=== PATIENT | female | born 1945 | race Caucasian/White ===

== ENCOUNTER → 2017-02-26 | Outpatient (CLI) | payer MEDICARE, BC ==
[2017-02-26 08:26] LABS: CHCM 32.3; HCT 42.2 % (34.0-46.0); HDW 2.67; HGB 13.9 gm/dL (11.4-16.0); MCH 30.9 pg (25.0-35.0); MCHC 33.1 g/dL (31.0-37.0); MCV 93.4 fL (80.0-100.0); Mean Platelet Volume 7.5; RBC 4.52 m/uL (3.80-5.40); RDW 12.7 % (11.5-15.5); WBC 5.5 k/uL (3.8-10.6)
[2017-02-26 12:04] LABS: ALT 40 U/L (9-52); AST 41 U/L (14-36); Alkaline Phosphatase 70 U/L (38-126); Anion Gap 12 mmol/L; Blood Urea Nitrogen 21 mg/dL (7-17); Calcium 10.3 mg/dL (8.4-10.2); Carbon Dioxide 27 mmol/L (22-30); Chloride 106 mmol/L (98-107); Glucose 106 mg/dL (74-99); Non-African American GFR(MDRD) >60 (>60 ml/min/1.73 sqM); Potassium 4.7 mmol/L (3.5-5.1); Sodium 145 mmol/L (137-145); Total Bilirubin 0.5 mg/dL (0.2-1.3); Total Protein 6.9 g/dL (6.3-8.2)
[2017-02-26 12:50] LABS: Vitamin B12 551 pg/mL
== END | disposition home or self-care (01) ==
LOC: LABWHC1 08:06
PROVIDERS: ATTEND Internal Medicine Endocrinology, Diabetes & Metabolism
DX: R53.83 Other fatigue (principal)
CPT/HCPCS: 36415; 80053; 82533; 82607; 84146; 84439; 84443; 84480; 85027; 86376

== ENCOUNTER → 2017-04-10 | Outpatient (CLI) | payer MEDICARE, BC ==
[2017-04-10 08:43] LABS: ALT 37 U/L (9-52); AST 24 U/L (14-36); Alkaline Phosphatase 69 U/L (38-126); Anion Gap 11 mmol/L; Blood Urea Nitrogen 25 mg/dL (7-17); Calcium 10.3 mg/dL (8.4-10.2); Carbon Dioxide 27 mmol/L (22-30); Chloride 105 mmol/L (98-107); Glucose 95 mg/dL (74-99); Non-African American GFR(MDRD) >60 (>60 ml/min/1.73 sqM); Potassium 4.6 mmol/L (3.5-5.1); Sodium 143 mmol/L (137-145); Total Bilirubin 0.4 mg/dL (0.2-1.3); Total Protein 7.2 g/dL (6.3-8.2)
== END | disposition home or self-care (01) ==
LOC: LABWHC1 08:05
PROVIDERS: ATTEND Internal Medicine Endocrinology, Diabetes & Metabolism
DX: E03.9 Hypothyroidism, unspecified (principal)
CPT/HCPCS: 36415; 80053; 82024; 82533; 84443

== ENCOUNTER → 2017-09-10 | Outpatient (CLI) | payer MEDICARE, BC ==
[2017-09-10 13:16] LABS: Blood Urea Nitrogen 23 mg/dL (7-17)
--- NOTE | 2017-09-10 16:44 | CT ---
EXAMINATION TYPE: CT urogram wo/w con DATE OF EXAM: 09/10/2017 HISTORY: Recurrent UTI CT DLP: 3184mGycm Automated Exposure Control for Dose Reduction was Utilized. CONTRAST: CT scan of the abdomen and pelvis is performed without and with IV Contrast, patient injected with 10 0 ml mL of Omnipaque 300. COMPARISON: None. FINDINGS: LUNG BASES: No significant abnormality is appreciated. LIVER/GB: Liver shows low attenuation possibly due to hepatic steatosis. Patient is post cholecystect isai. PANCREAS: No significant abnormality is seen. SPLEEN: Borderline enlarged. ADRENALS: No significant abnormality is seen. KIDNEYS: There is a low dense focus present in the renal pelvis measuring approximately 9 x 1 x 8 mm. This does not show contrast accumulation however on immediate postcontrast images there is suggestio n of a extension from this level, partial duplicated renal collecting system although no contrast acc umulates at this level in delayed images. BOWEL: No significant abnormality is seen. UTERUS/ADNEXA: Absent uterus, ovaries not identified with certainty LYMPH NODES: No greater than 1cm abdominal or pelvic lymph nodes are appreciated. OSSEOUS STRUCTURES: No significant abnormality is seen. OTHER: No significant additional abnormality is seen. 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 Postop changes and additional fin dings above.
== END | disposition home or self-care (01) ==
LOC: RADCTMAIN 12:15
PROVIDERS: ATTEND Surgery
DX: N39.0 Urinary tract infection, site not specified (principal); R52 Pain, unspecified; Z90.710 Acquired absence of both cervix and uterus; Z98.890 Other specified postprocedural states
CPT/HCPCS: 82565; 84520; 74178; 36415; 74400; Q9967

== ENCOUNTER → 2017-09-11 | Outpatient (CLI) | payer MEDICARE, BC | END | disposition home or self-care (01) | LOC: LABWHC1 09:46 | PROVIDERS: ATTEND Internal Medicine Endocrinology, Diabetes & Metabolism | DX: E03.8 Other specified hypothyroidism (principal); E83.52 Hypercalcemia | CPT/HCPCS: 36415; 83970; 84443 ==

== ENCOUNTER → 2018-01-16 | Outpatient (CLI) | payer MEDICARE, BC ==
[2018-01-16 10:40] LABS: Albumin 4.5 g/dL (3.5-5.0); Potassium 4.4 mmol/L (3.5-5.1); Total Bilirubin 0.5 mg/dL (0.2-1.3); Total Protein 6.7 g/dL (6.3-8.2)
[2018-01-16 15:52] LABS: Parathyroid Hormone Intact 16.6 pg/mL (14.0-72.0)
[2018-01-16 16:01] LABS: Vitamin D 25 Hydroxy 49.9 ng/mL (30.0-100.0)
== END | disposition home or self-care (01) ==
LOC: LABWHC1 09:08
PROVIDERS: ATTEND Internal Medicine Endocrinology, Diabetes & Metabolism
DX: E03.8 Other specified hypothyroidism (principal); E83.52 Hypercalcemia
CPT/HCPCS: 36415; 80053; 82306; 83970; 84443

== ENCOUNTER → 2018-07-16 | Outpatient (CLI) | payer MEDICARE, BC ==
--- NOTE | 2018-07-16 08:44 | US ---
EXAMINATION TYPE: US thyroid st tissue head/neck DATE OF EXAM: 07/16/2018 COMPARISON: NONE CLINICAL HISTORY: E03.9 Hypothyroidism, unspecified. GLAND SIZE: Right Lobe: 0.9 x 2.6 x 0.9 cm Overall Parenchyma: homogenous Left Lobe: 3.5 x 0.9 x 2.2 cm Overall Parenchyma: homogeneous Isthmus Thickness: 0.4 cm NODULES RIGHT: # of nodules measured on right: 0 LEFT: # of nodules measured on left: 1 1. 0.4 X 0.2 x 0.4 cm mixed nodule at the mid/lower pole with well-defined margins; . This nodule is wider than tall and shows no intranodular vascularity. Prior size: no prior 2. 0.4 X 0.2 x 0.4 cm solid nodule at the mid pole with well-defined margins; . This nodule is wide r than tall and shows no intranodular vascularity. Prior size: no prior ISTHMUS: # of nodules measured in the isthmus: 0 Bilateral neck scanned, no evidence of lymphadenopathy. IMPRESSION: Subcentimeter left thyroid nodules that do not meet size criteria for fine-needle aspiration. Surveil brandon could be performed with thyroid ultrasound in 12 months. Overall there is glandular atrophy.
[2018-07-16 09:32] LABS: Albumin 4.4 g/dL (3.5-5.0); Calcium 10.1 mg/dL (8.4-10.2); Potassium 4.4 mmol/L (3.5-5.1); Total Bilirubin 0.6 mg/dL (0.2-1.3); Total Protein 6.8 g/dL (6.3-8.2)
[2018-07-16 16:15] LABS: Parathyroid Hormone Intact 21.8 pg/mL (14.0-72.0)
[2018-07-16 17:17] LABS: Vitamin D 25 Hydroxy 49.7 ng/mL (30.0-100.0)
== END ==
LOC: RADUSWWP 08:08
PROVIDERS: ATTEND Internal Medicine Endocrinology, Diabetes & Metabolism
DX: E04.2 Nontoxic multinodular goiter (principal); R53.83 Other fatigue; E83.52 Hypercalcemia
CPT/HCPCS: 36415; 76536; 80053; 82306; 83970; 84443

== ENCOUNTER → 2018-09-10 | Outpatient (CLI) | payer MEDICARE, BC ==
--- NOTE | 2018-09-10 12:10 | CT ---
EXAMINATION TYPE: CT urogram wo/w con DATE OF EXAM: 09/10/2018 HISTORY: Hydronephrosis-left kidney (per Patient) CT DLP: 1906mGycm Automated Exposure Control for Dose Reduction was Utilized. CONTRAST: CT scan of the abdomen and pelvis is performed with IV Contrast, patient injected with 80 mL of Isovu e 300. COMPARISON: CT urogram 09/10/2017 FINDINGS: Lack of intravenous contrast may compromise sensitivity. LUNG BASES: No significant abnormality is appreciated. LIVER/GB: Patient is post cholecystectomy. Liver shows low attenuation possibly due to hepatic steato sis PANCREAS: No significant abnormality is seen. SPLEEN: No significant abnormality is seen. ADRENALS: No significant abnormality is seen. KIDNEYS: No significant abnormality is seen. BOWEL: No significant abnormality is seen. UTERUS/ADNEXA: Absent LYMPH NODES: No greater than 1cm abdominal or pelvic lymph nodes are appreciate d. OSSEOUS STRUCTURES: No significant interval change is seen. OTHER: No significant additional abnormality is seen. IMPRESSION: No significant finding.
== END | disposition home or self-care (01) ==
LOC: RADCTMAIN 07:51
PROVIDERS: ATTEND Urology
DX: N13.39 Other hydronephrosis (principal); N39.0 Urinary tract infection, site not specified
CPT/HCPCS: 82565; 84520; 74178; 36415; 74400; Q9967

== ENCOUNTER → 2019-02-01 | Outpatient (CLI) | payer MEDICARE, BC ==
[2019-02-01 17:56] LABS: Vitamin D 25 Hydroxy 44.6 ng/mL (30.0-100.0)
[2019-02-01 17:59] LABS: Albumin 4.6 g/dL (3.80-4.90); Albumin/Globulin Ratio 2.71 (1.60-3.17); Anion Gap 13.4 mmol/L (4.00-12.00); BUN/Creat Ratio 27.78 Ratio (12.00-20.00); Calcium 9.9 mg/dL (8.7-10.3); Carbon Dioxide 25.6 mmol/L (21.6-31.8); Globulin 1.7 g/dL (1.6-3.3); Potassium 4.5 mmol/L (3.5-5.5); Total Bilirubin 0.4 mg/dL (0.2-1.2); Total Protein 6.3 g/dL (6.2-8.2)
[2019-02-01 18:57] LABS: Parathyroid Hormone Intact 11.9 pg/mL (14.0-72.0)
== END | disposition home or self-care (01) ==
LOC: LABWHC1 10:08
PROVIDERS: ATTEND Internal Medicine Endocrinology, Diabetes & Metabolism
DX: E03.8 Other specified hypothyroidism (principal); E83.52 Hypercalcemia
CPT/HCPCS: 36415; 80053; 82306; 83970; 84443

== ENCOUNTER → 2019-08-10 | Outpatient (CLI) | payer MEDICARE, BC ==
[2019-08-10 18:06] LABS: African American GFR (CKD) 84.8 (60.0-200.0); Albumin 4.8 g/dL (3.80-4.90); BUN/Creat Ratio 31.25 Ratio (12.00-20.00); Calcium 9.4 mg/dL (8.7-10.3); Globulin 1.6 g/dL (1.6-3.3); Non-African American GFR(CKD) 73.1 (60.0-200.0); Potassium 4.2 mmol/L (3.5-5.5); Total Bilirubin 0.4 mg/dL (0.3-1.2); Total Protein 6.4 g/dL (6.2-8.2)
== END | disposition home or self-care (01) ==
LOC: LABWHC1 10:25
PROVIDERS: ATTEND Internal Medicine Endocrinology, Diabetes & Metabolism
DX: E83.52 Hypercalcemia (principal); E03.8 Other specified hypothyroidism
CPT/HCPCS: 36415; 80053; 82306; 83970; 84443

== ENCOUNTER → 2020-02-02 | Outpatient (CLI) | payer MEDICARE, BC ==
--- NOTE | 2020-02-02 07:58 | US ---
EXAMINATION TYPE: US thyroid st tissue head/neck DATE OF EXAM: 02/02/2020 COMPARISON: US July 16, 2018. CLINICAL HISTORY: E21.0 PRIMARY HYPERPARATHYROIDISM. Abnormal thyroid labs GLAND SIZE: Right Lobe: 2.9 x 0.8 x 0.8 cm Overall Parenchyma: homogenous Left Lobe: 3.3 x 1.0 x 0.8 cm Overall Parenchyma: homogeneous Isthmus Thickness: 0.3 cm NODULES RIGHT: # of nodules measured on right: 1 1. 0.3 X 0.2 x 0.4 cm hypoechoic mixed nodule at the upper pole with well-defined margins; This nod ule is wider than tall and shows intranodular vascularity. Prior size: No prior LEFT: # of nodules measured on left: 2 1. 0.6 X 0.3 x 0.5 cm hypoechoic solid nodule at the mid pole with well-defined margins; This nodul e is wider than tall and shows intranodular vascularity. Prior size: 0.4 x 0.2 x 0.4 cm 2. 0.4 X 0.2 x 0.4 cm hypoechoic mixed nodule at the lower pole with well-defined margins; This nod ule is wider than tall and shows intranodular vascularity. Prior size: 0.4 x 0.2 x 0.4 cm Bilateral neck scanned, no evidence of lymphadenopathy. New nodule right lobe, slight increase in sub -centimeter nodule on left. Small-sized fairly homogeneous thyroid with stable small left-sided nodules. Small right-sided nodule current study not clearly seen on prior exam. IMPRESSION: As above. Persistent small sized thyroid. No new greater than 1 cm nodules.
[2020-02-02 09:35] LABS: ALT 20 U/L (4-34); AST 30 U/L (14-36); African American GFR (CKD) >90 (>60 ml/min/1.73 sqM); Albumin 4.7 g/dL (3.5-5.0); Alkaline Phosphatase 49 U/L (38-126); Anion Gap 8 mmol/L; Blood Urea Nitrogen 22 mg/dL (7-17); Carbon Dioxide 29 mmol/L (22-30); Chloride 103 mmol/L (98-107); Glucose 86 mg/dL (74-99); Non-African American GFR(CKD) 79 (>60 ml/min/1.73 sqM); Potassium 4.4 mmol/L (3.5-5.1); Sodium 140 mmol/L (137-145); Total Bilirubin 0.5 mg/dL (0.2-1.3); Total Protein 6.8 g/dL (6.3-8.2)
== END | disposition home or self-care (01) ==
LOC: RADUSWWP 07:25
PROVIDERS: ATTEND Internal Medicine Endocrinology, Diabetes & Metabolism
DX: E21.0 Primary hyperparathyroidism (principal); E03.8 Other specified hypothyroidism
CPT/HCPCS: 36415; 76536; 80053; 82306; 83970; 84443

== ENCOUNTER → 2020-02-24 | Outpatient (CLI) | payer MEDICARE, BC ==
[2020-02-24 18:08] LABS: Hemoglobin A1C 5.7 % (4.0-6.0)
[2020-02-24 19:06] LABS: African American GFR (CKD) 73.5 (60.0-200.0); Albumin 4.6 g/dL (3.80-4.90); Albumin/Globulin Ratio 2.42 (1.60-3.17); Anion Gap 8.1 mmol/L (4.00-12.00); BUN/Creat Ratio 24.44 Ratio (12.00-20.00); Calcium 9.8 mg/dL (8.7-10.3); Carbon Dioxide 27.9 mmol/L (21.6-31.8); Chol/HDL Ratio 2.05; Globulin 1.9 g/dL (1.6-3.3); Non-African American GFR(CKD) 63.4 (60.0-200.0); Total Bilirubin 0.7 mg/dL (0.3-1.2); Total Protein 6.5 g/dL (6.2-8.2)
== END | disposition home or self-care (01) ==
LOC: LABWHC1 10:03
PROVIDERS: ATTEND Family Medicine
DX: E03.9 Hypothyroidism, unspecified (principal); E78.5 Hyperlipidemia, unspecified; R73.02 Impaired glucose tolerance (oral)
CPT/HCPCS: 36415; 80053; 80061; 83036; 84443

== ENCOUNTER → 2020-05-17 | Outpatient (CLI) | payer MEDICARE, BC | END | disposition home or self-care (01) | LOC: LABWHC1 09:28 | PROVIDERS: ATTEND Internal Medicine Endocrinology, Diabetes & Metabolism | DX: E03.8 Other specified hypothyroidism (principal); E21.0 Primary hyperparathyroidism | CPT/HCPCS: 36415; 83970; 84443 ==

== ENCOUNTER → 2020-07-20 | Outpatient (CLI) | payer MEDICARE, BC ==
--- NOTE | 2020-07-21 15:00 | MM ---
Reason for exam: screening (asymptomatic). History: Patient is postmenopausal. Took progesterone beginning at age 49. Physical Findings: A clinical breast exam by your physician is recommended on an annual basis and results should be correlated with mammographic findings. MG 3D Screening Mammo W/Cad Bilateral CC and MLO view(s) were taken. The breast tissue is heterogeneously dense. This may lower the sensitivity of mammography. There is no discrete abnormality. ASSESSMENT: Negative, BI-RAD 1 RECOMMENDATION: Routine screening mammogram of both breasts in 1 year.
== END | disposition home or self-care (01) ==
LOC: RADMAMWWP 09:28
PROVIDERS: ATTEND Family Medicine
DX: Z12.31 Encounter for screening mammogram for malignant neoplasm of breast (principal)
CPT/HCPCS: 77063; 77067

== ENCOUNTER → 2020-08-25 | Outpatient (CLI) | payer MEDICARE, BC ==
[2020-08-25 17:53] LABS: Albumin 4.9 g/dL (3.80-4.90); Albumin/Globulin Ratio 3.27 (1.60-3.17); Anion Gap 10.4 mmol/L (4.00-12.00); BUN/Creat Ratio 35.56 Ratio (12.00-20.00); Carbon Dioxide 25.6 mmol/L (21.6-31.8); Globulin 1.5 g/dL (1.6-3.3); Potassium 4.3 mmol/L (3.5-5.5); Total Bilirubin 0.4 mg/dL (0.2-1.2); Total Protein 6.4 g/dL (6.2-8.2)
== END | disposition home or self-care (01) ==
LOC: LABWHC1 09:25
PROVIDERS: ATTEND Internal Medicine Endocrinology, Diabetes & Metabolism
DX: E03.8 Other specified hypothyroidism (principal); E83.52 Hypercalcemia
CPT/HCPCS: 36415; 80053; 82607; 83970; 84443

== ENCOUNTER → 2021-03-05 | Outpatient (CLI) | payer MEDICARE, BC ==
[2021-03-05 23:50] LABS: African American GFR (CKD) 84.2 (60.0-200.0); Albumin 4.5 g/dL (3.80-4.90); Albumin/Globulin Ratio 2.25 (1.60-3.17); BUN/Creat Ratio 37.5 Ratio (12.00-20.00); Calcium 9.4 mg/dL (8.7-10.3); Non-African American GFR(CKD) 72.6 (60.0-200.0); Potassium 3.9 mmol/L (3.5-5.5); Total Bilirubin 0.3 mg/dL (0.2-1.2); Total Protein 6.5 g/dL (6.2-8.2)
== END | disposition home or self-care (01) ==
LOC: LABWHC1 12:49
PROVIDERS: ATTEND Internal Medicine Endocrinology, Diabetes & Metabolism
DX: E03.8 Other specified hypothyroidism (principal); E83.52 Hypercalcemia
CPT/HCPCS: 36415; 80053; 82306; 83970; 84443

== ENCOUNTER → 2021-08-16 | Outpatient (CLI) | payer MEDICARE, BC ==
--- NOTE | 2021-08-16 15:23 | BD ---
EXAMINATION TYPE: Axial Bone Density DATE OF EXAM: 08/16/2021 COMPARISON: NONE CLINICAL HISTORY: 76 YR OLD FEMALE.....ICD-10 CODE: N95.1 MENOPAUSAL Height: Weight: FRAX RISK QUESTIONS: Secondary Osteoporosis: YES 3. Menopause before 45: YES RISK FACTORS HISTORY OF: Surgery to RT HIP.....THR OCTOBER 2020 Family History of Osteoporosis: AUNTS, WITH HUMP ON BACK, UNSURE OF FXs Diet low in dairy products/other sources of calcium: YES Postmenopausal woman: YES, AT AGE 46 YRS OLD TOTAL HYST Take estrogen and/or progesterone medications: YES, FOR ABOUT 15 YRS NONE NOW Hyperparathyroidism: NO Adrenal Insufficiency: NO MEDICATIONS: Prednisone or other steroids: YES, NEEDED FOR YRS Thyroid Medications: YES, SYNTHROID FOR ABOUT 5 YRS Additional Medications: BP MEDS, REFLUX MEDS, STATIN FOR CHOLESTEROL, VIT D AND CALCIUM Additional History: HYPERTENSION, CHOLESTEROL, REFLUX, THYROID EXAM MEASUREMENTS: Bone mineral densitometry was performed using the [employer] System. Bone mineral density as measured about the Lumbar spine is: ----- L1-L4(G/cm2): 1.014 T Score Values are as follows: ----- L1: -1.3 ----- L2: -2.4 ----- L3: -1.6 ----- L4: -0.6 ----- L1-L4: -1.4 Bone mineral density FIRST DEXA STUDY AT [facility] Bone mineral density about the L hip (g/cm2): 0.891 T Score values are as follows: -----L Neck: -1.5 -----L Total: -0.9 Bone mineral density FIRST STUDY AT [facility] FRAX%s: THERE IS A 10.7% CHANCE FOR A MAJOR OSTEOPOROTIC FX AND A 2.1% FOR HIP.......PROBABILITY FOR FX IN 10 YRS TIME IMPRESSION: Osteopenia (T Score between -2.5 and -1). There is slightly increased risk of fracture and the patient may be considered for treatment. Re-Screen 2-5 years. NOTE: T-SCORE=SD OF THE YOUNG ADULT MEAN.
== END | disposition home or self-care (01) ==
LOC: RADBDWWP 12:25
PROVIDERS: ATTEND Family Medicine
DX: M85.80 Other specified disorders of bone density and structure, unspecified site (principal); N95.1 Menopausal and female climacteric states
CPT/HCPCS: 77080

== ENCOUNTER → 2021-10-09 | Outpatient (CLI) | payer MEDICARE, BC ==
[2021-10-10 02:37] LABS: Immunoglobulin E 5.41 IU/mL (0.00-114.00)
== END | disposition home or self-care (01) ==
LOC: LABWHC1 12:47
PROVIDERS: ATTEND Internal Medicine Critical Care Medicine
DX: T78.49XD Other allergy, subsequent encounter (principal); X58.XXXD Exposure to other specified factors, subsequent encounter
CPT/HCPCS: 36415; 82785; 86003

== ENCOUNTER → 2023-05-13 | Outpatient (CLI) | payer MEDICARE, BC ==
--- NOTE | 2023-05-13 15:58 | CT ---
EXAMINATION TYPE: CT chest wo/w con DATE OF EXAM: 05/13/2023 COMPARISON: None HISTORY: Pneumonia x 2 months ago followed by abnormal xray. CT DLP: 787.9 mGycm, Automated exposure control for dose reduction was used. CONTRAST: Performed injected with 100 cc mL of Isovue 300. TECHNIQUE: Axial images were obtained at 5 mm thick sections. Reconstructed images are reviewed on [employer] computer in the coronal plane. FINDINGS: Portion of the thyroid visualized is normal. No suspicious lung nodules or focal infiltrates are present. No enlarged mediastinal or hilar adenopathy is evident. The ascending aorta diameter at the level o f the main pulmonary artery is 3.4 cm. The main pulmonary artery diameter at the bifurcation is 2.3 cm. There is a small hiatal hernia present. Limited CT sections are obtained through the upper abdomen. Abdomen is essentially unremarkable. IMPRESSION: 1. Small hiatal hernia. 2. No acute pulmonary process.
== END | disposition home or self-care (01) ==
LOC: RADCTMAIN 14:09
PROVIDERS: ATTEND Family Medicine
DX: C34.2 Malignant neoplasm of middle lobe, bronchus or lung (principal); J18.9 Pneumonia, unspecified organism; K44.9 Diaphragmatic hernia without obstruction or gangrene; R91.8 Other nonspecific abnormal finding of lung field
CPT/HCPCS: 71270; Q9967

== ENCOUNTER 2023-07-16 07:22 | Day surgery (SDC) | payer MEDICARE, BC ==
--- NOTE | 2023-07-15 09:07 | P.HPOR ---
History of Present Illness H&P Date: 07/15/23 Subjective: This is a 78 year old female that presents today for initial evaluation regarding a several year history of progressively worsening right index finger katharine. She's been seeing Dr. Walter who has performed several steroid injections over the past several years and she states the most recent injections are only lasting approximately 4 to 6 weeks before her symptoms return. She notes pain with pinching and grasping and states that most of her pain is located at the i ndex finger MCP joint. It is starting to affect her daily activities and she would like to remain active. Physical Examination: RUE: AIN/PIN/Radial/Ulnar/Median motor intact. Radial/Ulnar/Median SILT. 2+/4 Radial/Ulnar pulses palpated. 5/5 APB, 5/5 FDI. Negative Finkelsteins, negative CMC grind, negative Durkan's compression. TTP over RIF MCP joint. MCPJ ROM 0-25 with pain. Imaging: X-Rays of the right hand, 3 view taken in office today demonstrate severe degenerative changes at the index MCP joint. Impression: 1.) Right index finger MCP joint arthirtis, severe. Plan: Diagnosis and treatment options were discussed with the patient. She has failed conservative treatment and would like to pursue a right index finger MCP joint arthroplasty. Risks and benefits of surgery including bleeding, infection, damage to surrounding tissue, need for further surgery, residual numbness were discussed and the patient wished to go forward with surgery. We discussed the range of motion will likely be similar to her pre op state and the main goal of the procedure is to address the pain component of her symptoms. The patient was agreeable with this plan. CC: Kayy Menjivar DO Orthopedic Hand/Upper Extremity Surgeon Past Medical History Past Medical History: Asthma, GERD/Reflux, Hyperlipidemia, Hypertension, Osteoarthritis (OA), Thyroid Disorder Additional Past Medical History / Comment(s): hx. of frequent UTI's History of Any Multi-Drug Resistant Organisms: None Reported Past Surgical History: Cholecystectomy, Hysterectomy, Joint Replacement, Orthopedic Surgery Additional Past Surgical History / Comment(s): right knee & right hip replacement, ORIF right ankle, hardware removed Past Anesthesia/Blood Transfusion Reactions: Postoperative Nausea & Vomiting (PONV) Smoking Status: Former smoker - Past Family History Mother Family Medical History: No Reported History Medications and Allergies Home Medications Medication Instructions Recorded Confirmed Type Albuterol Inhaler [Ventolin Hfa 1 - 2 puff INHALATION Q6H PRN 07/10/23 07/10/23 History Inhaler] Atorvastatin [Lipitor] 10 mg PO HS 07/10/23 07/10/23 History Cran Defense 1 tab PO DAILY 07/10/23 07/10/23 History Estradiol Cream [Estrace Cream 1 gm VAGINAL Q3D 07/10/23 07/10/23 History 0.01%] Fenofibrate Nanocrystallized 145 mg PO DAILY 07/10/23 07/10/23 History [Fenofibrate] Fexofenadine HCl [Johnna Allergy] 180 mg PO DAILY 07/10/23 07/10/23 History Fluticasone Nasal [place] [Flonase 2 spray EA NOSTRIL DAILY PRN 07/10/23 07/10/23 History Nasal [place]] Fluticasone Propion/Salmeterol 1 inhalation PO BID 07/10/23 07/10/23 History [Advair 250-50 Diskus] Levothyroxine Sodium [Synthroid] 88 mcg PO DAILY 07/10/23 07/10/23 History Magnesium 200 mg PO DAILY 07/10/23 07/10/23 History Montelukast [Singulair] 10 mg PO HS 07/10/23 07/10/23 History Multivitamins, Thera [Multivitamin 1 tab PO DAILY 07/10/23 07/10/23 History (formulary)] Omeprazole 20 mg PO DAILY 07/10/23 07/10/23 History dilTIAZem HCL [dilTIAZem HCL 24Hr 180 mg PO DAILY 07/10/23 07/10/23 History ER (Xr)] traZODone HCL 100 mg PO HS 07/10/23 07/10/23 History Allergies Allergy/AdvReac Type Severity Reaction Status Date / Time NSAIDS (Non-Steroidal AdvReac GI upset Verified 07/10/23 13:02 Anti-Inflamma Physical Examination Osteopathic Statement: *. No significant issues noted on an osteopathic structural exam other than those noted in the History and Physical/Consult.
[~2023-07-16 07:22] MED LIST: DEXAMETHASONE SOD PHOSPHATE 4 MG/ML 1 ML VIAL IV ONE; HYDROmorphone 0.5 MG/0.5 ML SYRINGE IVP PRN; LACTATED RINGERS 1,000 ML IV SCH; LIDOCAINE 1% (10MG/ML) FOR IV START INTRADERMA PRN; ONDANSETRON 4 MG/2 ML VIAL IVP ONE
[2023-07-16] MEDS ORDERED: LACTATED RINGERS 1,000 ML IV ONE (08:00)
[2023-07-16] MEDS ORDERED: MIDAZOLAM 2 MG/2 ML VIAL IVP ONE (08:28)
[2023-07-16] MEDS ORDERED: ONDANSETRON 4 MG/2 ML VIAL IVP ONE (08:35)
[2023-07-16] MEDS ORDERED: DEXAMETHASONE SOD PHOSPHATE 4 MG/ML 1 ML VIAL IVP ONE (08:35)
[2023-07-16] MEDS ORDERED: FAMOTIDINE 20 MG/2 ML VIAL IVP ONE (08:40)
[2023-07-16] MEDS ORDERED: SCOPOLAMINE 1 MG/72 HR PATCH TRANSDERM ONE (08:40)
--- NOTE | 2023-07-16 08:45 | P.ANPRN ---
Procedure Note - Anesthesia - Nerve Block Performed Right Supraclavicular Single Time Out Performed: Yes Date of Procedure: 07/16/23 Procedure Start Time: :28 Procedure Stop Time: 08:35 Location of Patient: PreOp Indication: Acute Post-Operative Pain, Analgesia, Requested by Surgeon Sedation Type: Sedate with meaningful contact maintained Preparation: Sterile Prep Position: Supine Catheter: None Needle Types: Pajunk Needle Gauge: 21 Ultrasound used to visualize needle placement: Yes Ultrasound used to observe medication spread: Yes (Nerve stimulation @0.5 MA) Injectate: 0.5% Ropivacaine (see comment for volume) (Ropivacaine 20ml) Blood Aspirated: No Pain Paresthesia on Injection Noted: No Resistance on Injection: Normal Image Stored and Saved: Yes Events: Uneventful and Well Tolerated
[2023-07-16 09:20] VITALS: TEMP 97.8
[2023-07-16 10:08] VITALS: BP 149/73; PULSE 74; RESP 18
== END 2023-07-16 10:14 | disposition home or self-care (01) ==
LOC: OR 07:22
PROVIDERS: ATTEND Orthopaedic Surgery Hand Surgery
DX: M19.041 Primary osteoarthritis, right hand (principal); G89.18 Other acute postprocedural pain; J45.909 Unspecified asthma, uncomplicated; I10 Essential (primary) hypertension; E78.5 Hyperlipidemia, unspecified; K21.9 Gastro-esophageal reflux disease without esophagitis; E07.9 Disorder of thyroid, unspecified; Z90.710 Acquired absence of both cervix and uterus; Z90.49 Acquired absence of other specified parts of digestive tract; Z96.641 Presence of right artificial hip joint; Z87.891 Personal history of nicotine dependence; Z79.51 Long term (current) use of inhaled steroids; Z79.899 Other long term (current) drug therapy; Z79.890 Hormone replacement therapy; Z88.6 Allergy status to analgesic agent
CPT/HCPCS: 64415; J2250; J1100; J2405; J3490

== ENCOUNTER 2023-07-18 11:28 | Day surgery (SDC) | payer MEDICARE, BC ==
--- NOTE | 2023-07-17 19:31 | P.HPOR ---
History of Present Illness H&P Date: 07/17/23 Subjective: This is a 78 year old female that presents today for initial evaluation regarding a several year history of progressively worsening right index finger katharine. She's been seeing Dr. Walter who has performed several steroid injections over the past several years and she states the most recent injections are only lasting approximately 4 to 6 weeks before her symptoms return. She notes pain with pinching and grasping and states that most of her pain is located at the index finger MCP joint. It is starting to affect her daily activities and she would like to remain active. Physical Examination: RUE: AIN/PIN/Radial/Ulnar/Median motor intact. Radial/Ulnar/Median SILT. 2+/4 Radial/Ulnar pulses palpated. 5/5 APB, 5/5 FDI. Negative Finkelsteins, negative CMC grind, negative Durkan's compression. TTP over RIF MCP joint. MCPJ ROM 0-25 with pain. Imaging: X-Rays of the right hand, 3 view taken in office today demonstrate severe degenerative changes at the index MCP joint. Impression: 1.) Right index finger MCP joint arthirtis, severe. Plan: Diagnosis and treatment options were discussed with the patient. She has failed conservative treatment and would like to pursue a right index finger MCP joint arthroplasty. Risks and benefits of surgery including bleeding, infection, damage to surrounding tissue, need for further surgery, residual numbness were discussed and the patient wished to go forward with surgery. We discussed the range of motion will likely be similar to her pre op state and the main goal of the procedure is to address the pain component of her symptoms. The patient was agreeable with this plan. CC: Kayy Menjivar DO Orthopedic Hand/Upper Extremity Surgeon Past Medical History Past Medical History: Asthma, GERD/Reflux, Hyperlipidemia, Hypertension, Osteoarthritis (OA), Thyroid Disorder Additional Past Medical History / Comment(s): hx. of frequent UTI's, this surg. rescheduled from Fri. History of Any Multi-Drug Resistant Organisms: None Reported Past Surgical History: Cholecystectomy, Hysterectomy, Joint Replacement, Orthopedic Surgery Additional Past Surgical History / Comment(s): right knee & right hip replacement, ORIF right ankle, hardware removed Past Anesthesia/Blood Transfusion Reactions: Postoperative Nausea & Vomiting (PONV) Smoking Status: Former smoker - Past Family History Mother Family Medical History: No Reported History Medications and Allergies Home Medications Medication Instructions Recorded Confirmed Type Albuterol Inhaler [Ventolin Hfa 1 - 2 puff INHALATION Q6H PRN 07/10/23 07/17/23 History Inhaler] Atorvastatin [Lipitor] 10 mg PO HS 07/10/23 07/17/23 History Cran Defense 1 tab PO DAILY 07/10/23 07/17/23 History Estradiol Cream [Estrace Cream 1 gm VAGINAL Q3D 07/10/23 07/17/23 History 0.01%] Fenofibrate Nanocrystallized 145 mg PO DAILY 07/10/23 07/17/23 History [Fenofibrate] Fexofenadine HCl [Johnna Allergy] 180 mg PO DAILY 07/10/23 07/17/23 History Fluticasone Nasal [place] [Flonase 2 spray EA NOSTRIL DAILY PRN 07/10/23 07/17/23 History Nasal [place]] Fluticasone Propion/Salmeterol 1 inhalation PO BID 07/10/23 07/17/23 History [Advair 250-50 Diskus] Levothyroxine Sodium [Synthroid] 88 mcg PO DAILY 07/10/23 07/17/23 History Magnesium 200 mg PO DAILY 07/10/23 07/17/23 History Montelukast [Singulair] 10 mg PO HS 07/10/23 07/17/23 History Multivitamins, Thera [Multivitamin 1 tab PO DAILY 07/10/23 07/17/23 History (formulary)] Omeprazole 20 mg PO DAILY 07/10/23 07/17/23 History dilTIAZem HCL [dilTIAZem HCL 24Hr 180 mg PO DAILY 07/10/23 07/17/23 History ER (Xr)] traZODone HCL 100 mg PO HS 07/10/23 07/17/23 History Allergies Allergy/AdvReac Type Severity Reaction Status Date / Time NSAIDS (Non-Steroidal AdvReac GI upset Verified 07/16/23 07:47 Anti-Inflamma Physical Examination Osteopathic Statement: *. No significant issues noted on an osteopathic structural exam other than those noted in the History and Physical/Consult.
[2023-07-18] MEDS ORDERED: HYDROmorphone 0.5 MG/0.5 ML SYRINGE IVP PRN (11:58)
[2023-07-18] MEDS ORDERED: DEXAMETHASONE SOD PHOSPHATE 4 MG/ML 1 ML VIAL IV ONE (11:58)
[2023-07-18] MEDS ORDERED: LACTATED RINGERS 1,000 ML IV SCH (11:58)
[2023-07-18] MEDS ORDERED: ONDANSETRON 4 MG/2 ML VIAL IVP ONE ×2 (11:58→12:24)
[2023-07-18] MEDS ORDERED: DEXAMETHASONE SOD PHOSPHATE 4 MG/ML 1 ML VIAL IVP ONE (12:25)
[2023-07-18] MEDS ORDERED: MIDAZOLAM 2 MG/2 ML VIAL IVP ONE (12:34)
--- NOTE | 2023-07-18 13:40 | P.ANPRN ---
Procedure Note - Anesthesia - Nerve Block Performed Right Infraclavicular Single Time Out Performed: Yes Date of Procedure: 07/18/23 Location of Patient: PreOp Indication: Acute Post-Operative Pain, Dx/Pain Location (right hand), Requested by Surgeon Specifically requested for management of pain by DrHollie: Santiago Baltazar Sedation Type: Sedate with meaningful contact maintained Preparation: Sterile Prep Position: Supine Catheter: None Needle Types: Pajunk Needle Gauge: 21 Ultrasound used to visualize needle placement: Yes Ultrasound used to observe medication spread: Yes Injectate: 0.5% Ropivacaine (see comment for volume) (30 cc + 4mg of decadron) Blood Aspirated: No Pain Paresthesia on Injection Noted: No Resistance on Injection: Normal Image Stored and Saved: Yes Events: Uneventful and Well Tolerated
[2023-07-18] MEDS ORDERED: LIDOCAINE 1% INJ 10MG/ML (20 ML MDV) ONE (14:39)
[2023-07-18] MEDS ORDERED: PHENYLEPHRINE 10 MG/ML VIAL ONE (14:39)
[2023-07-18] MEDS ORDERED: PROPOFOL 10 MG/ML 20 ML VIAL IV ONE (14:39)
[2023-07-18] MEDS ORDERED: ROPIVACAINE 5 MG/ML 30 ML VIAL ONE (14:39)
[2023-07-18] MEDS ORDERED: DEXAMETHASONE SOD PHOSPHATE 4 MG/ML 1 ML VIAL ONE (14:39)
--- NOTE | 2023-07-18 16:01 | P.OP ---
Date of Procedure: 07/18/23 Preoperative Diagnosis: Right index finger MCP joint osteoarthritis Postoperative Diagnosis: Right index finger MCP joint osteoarthritis Procedure(s) Performed: Right index finger MCP joint arthroplasty with silastic implant Implants: Biopro Silicone MCP joint arthroplasty, Size 4 Anesthesia: SHARATH Surgeon: Santiago Baltazar Estimated Blood Loss (ml): 0 Pathology: none sent Condition: stable Disposition: PACU Description of Procedure: Operative Narrative: The patient was brought to the operating room by the department of anesthesia. They remained on the portable stretcher and a rolling hand table was brought to the side of the operative extremity. Pre-operative time out was performed indicating the correct patient, procedure and laterality. All in the room agreed. Pre-operative antibiotics were given prior to skin incision. The patient was then drifted off to sleep by the department of anesthesia. A nonsterile tourniquet was then applied to the operative extremity and the right upper extremity was then prepped and draped in normal sterile fashion. The operative extremity was the exsanguinated with an esmarch bandage and the tourniquet was inflated to 250mmHg. Attention was then drawn to the index finger MCP joint. 15 blade scalpel was used to make a longitudinal incision over the dorsal aspect of the MCP joint. Blunt dissection was taken down to the extensor tendons taking care to protect dorsal sensory nerves. Longitudinal incision was made just radial to the extensor tendon to reveal dorsal capsule. Retractors were placed deep to extensor tendon and plane was developed between dorsal capsule and extensor tendon. Longitudinal incision was made centered over the dorsal capsule and full thickness flaps were created. There was severe arthritic changes at the metacarpal head and proximal phalanx base. Osteophytes were removed with rongeur. Radial and ulnar collateral ligaments were preserved. The joint was then flexed and a micro saggital saw was used to make a parallel cut of the distal portion of the metacarpal head to remove the articular surface while preserving the metaphyseal flare and origins of the collateral ligaments. Canal finder awl was then used to enter the canal of the proximal phalanx. Sequential broaching was the performed starting with a size 00. When a size 4 was reached, this had good fit and fill of the medullary canal. Starting awl was then inserted into the metacarpal shaft and sequential broaching was performed starting with a size 00 up to a size 4, this had good fit and fill of the medullary canal. Trial size 4 implant was then inserted and found to be a good fit. Size 4 was inserted and this matched the patients [place] anatomy best. The finger was ranged and stable flexion/extension was appreciated. Mini C-arm was utilized to confirm appropriate articular alignment and a symmetric gap. The wound was then irrigated. A final size 4 [employer] silastic implant was inserted into the medullary canals under direct visualization. The finger was again ranged and stable flexion/extension was observed and radial and ulnar collateral ligaments were stressed and found to be providing good stability. Layered closure was performed with 3-0 Monocryl suture for capsular closure followed by extensor mccoy closure with running 3-0 Monocryl suture with skin closure being performed with several interrupted 4-0 Monocryl sutures followed by a running Monocryl suture. Volar plaster splint was applied and a tourniquet was let down and the hand had immediate perfusion. The patient was then woken by the department of anesthesia and transferred to PACU in stable condition. Peter Willams was present for the case to assist in major portions of the procedure including implant placement. Santiago Baltazar D.O. Orthopedic Hand/Upper Extremity Surgeon
[2023-07-18 16:20] VITALS: TEMP 97.3
[2023-07-18 17:26] VITALS: BP 153/62; PULSE 77; RESP 16
== END 2023-07-18 17:27 | disposition home or self-care (01) ==
LOC: OR 11:28
PROVIDERS: ATTEND Orthopaedic Surgery Hand Surgery
DX: M19.041 Primary osteoarthritis, right hand (principal); G89.18 Other acute postprocedural pain; J45.909 Unspecified asthma, uncomplicated; K21.9 Gastro-esophageal reflux disease without esophagitis; E78.5 Hyperlipidemia, unspecified; I10 Essential (primary) hypertension; E07.9 Disorder of thyroid, unspecified; Z87.440 Personal history of urinary (tract) infections; Z90.49 Acquired absence of other specified parts of digestive tract; Z90.710 Acquired absence of both cervix and uterus; Z96.641 Presence of right artificial hip joint; Z98.890 Other specified postprocedural states; Z87.891 Personal history of nicotine dependence; Z79.51 Long term (current) use of inhaled steroids; Z79.890 Hormone replacement therapy; Z79.899 Other long term (current) drug therapy; Z88.6 Allergy status to analgesic agent
CPT/HCPCS: 26531; 26536; 64415; J2250; J1100; J0690; J2405

== ENCOUNTER → 2023-09-18 | Outpatient (CLI) | payer MEDICARE, BC ==
--- NOTE | 2023-09-18 12:43 | BD ---
EXAMINATION TYPE: Axial Bone Density DATE OF EXAM: 09/18/2023 CLINICAL HISTORY: 78 years old Female. ICD-10 CODE: Z78.0 POSTMENOPAUSAL Height: 63.75 Weight: 196.0 FRAX RISK QUESTIONS: Alcohol (3 or more units per day): no Family History (Parent hip fracture): no Glucocorticoids (More than 3mos): Inhaler twice a day past 4 years for asthma History of Fracture in Adulthood: ankle Secondary Osteoporosis: 1. Type 1 Diabetes: no 2. Hyperthyroidism: no 3. Menopause before 45: no 4. Malnutrition: no 5. Chronic liver disease: no Rheumatoid Arthritis: no Current Tobacco Use: no RISK FACTORS HISTORY OF: Hip Fracture (Right/Left): no Spine Fracture: no History of Wrist Fracture: no Surgery to Spine/Hip(right/left)/Wrist (right/left): RT hip replaced age 75 MEDICATIONS: Thyroid Medications: Synthroid How Long: past 10 years Osteoporosis Medications: no EXAM MEASUREMENTS: Bone mineral densitometry was performed using the [employer] System. Bone mineral density as measured about the Lumbar spine is: ----- L1-L4(G/cm2): 1.009 T Score Values are as follows: ----- L1: -1.4 ----- L2: -1.8 ----- L3: -1.1 ----- L4: -1.6 ----- L1-L4: -1.4 Z Score Values are as follows: ----- L1: -0.4 ----- L2: -0.8 ----- L3: -0.1 ----- L4: -0.6 ----- L1-L4: -0.4 Bone mineral density has: decreased -0.5 % since study of: 08/16/2021 Bone mineral density about the L hip (g/cm2): 0.910 T Score values are as follows: -----L Neck: -1.2 -----L Total: -0.8 Z Score values are as follows: -----L Neck: 0.3 -----L Total: 0.5 Bone mineral density has: increased 2.1 % since study of: 08/16/2021 FRAX%s: The graph provided illustrates a 16.0 % chance for a major osteoporotic fx and a 2.7% chance for the hips probability for fx in 10 years time. IMPRESSION: Osteopenia (T Score between -2.5 and -1). There is slightly increased risk of fracture and the patient may be considered for treatment. Re-Screen 2-5 years. NOTE: T-SCORE=SD OF THE YOUNG ADULT MEAN.
--- NOTE | 2023-09-19 08:47 | MM ---
Reason for Exam: Screening (asymptomatic). Last mammogram was performed 1 year(s) and 1 month(s) ago. Patient History: Menarche at age 14. First Full-Term at age 24. Left ovary removed at age 49. Right ovary removed at age 49. Hysterectomy at age 49. Postmenopausal. Progesterone, from age 49 until age 61. Risk Values: Evette 5 year model risk: 1.6%. NCI Lifetime model risk: 3.0%. Prior Study Comparison: 07/20/2020 Bilateral Screening Mammogram, [facility]. 07/23/2021 Bilateral Screening Mammogram, [facility]. 08/23/2022 Bilateral MG 3D screening mammo w/cad, [facility]. Tissue Density: The breasts are heterogeneously dense, which may obscure small masses. Findings: Analyzed By CAD. There is no suspicious group of microcalcifications or new suspicious mass in either breast. Overall Assessment: Negative, BI-RAD 1 Management: Screening Mammogram of both breasts in 1 year. . Patient should continue monthly self-breast exams. A clinical breast exam by your physician is recommended on an annual basis. This exam should not preclude additional follow-up of suspicious palpable abnormalities. Note on Evette scores and lifetime risk: 1. A Evette score greater than 3% is considered moderate risk. If this is the case, consider specialist referral to assess eligibility for a risk reducing agent. 2. If overall lifetime risk for the development of breast cancer is 20% or higher, the patient may qualify for future screening with alternating mammogram and breast MRI. Electronically signed and approved by: Miguel Klein M.D. Radiologis
== END | disposition home or self-care (01) ==
LOC: RADBDWWP 09:45
PROVIDERS: ATTEND Family Medicine
DX: Z12.31 Encounter for screening mammogram for malignant neoplasm of breast (principal); Z13.820 Encounter for screening for osteoporosis; M85.89 Other specified disorders of bone density and structure, multiple sites; Z78.0 Asymptomatic menopausal state
CPT/HCPCS: 77063; 77067; 77080

== ENCOUNTER → 2024-01-24 | Outpatient (CLI) | payer MEDICARE, BC ==
[2024-01-25 07:48] LABS: Chol/HDL Ratio 2.38 Ratio; LDL Cholesterol,Calculated 52.4 mg/dL (0.0-131.0)
== END | disposition home or self-care (01) ==
LOC: LABWHC1 08:38
PROVIDERS: ATTEND Internal Medicine
DX: E78.2 Mixed hyperlipidemia (principal)
CPT/HCPCS: 36415; 80061